=== PATIENT | male | born 1990 | race Caucasian/White ===

== ENCOUNTER 2016-12-14 02:45 | Emergency (ER) | payer OTHER ==
[~2016-12-14 02:45] MED LIST: BACTRIM DS TABL1 TA1 PO; IBUPROFEN800 MG PO; LORTAB 7.5-5001 TAB PO
== END 2016-12-14 04:15 | disposition left against medical advice (07) ==
LOC: CED 02:45
DX: Z53.21 Procedure and treatment not carried out due to patient leaving prior to being seen by health care provider (principal)

== ENCOUNTER 2017-02-12 00:44 | Emergency (ER) | payer OTHER ==
[~2017-02-12] VITALS: Ht 182.9 cm; Wt 63.5 kg
== END 2017-02-12 01:20 | disposition left against medical advice (07) ==
LOC: CED 00:44
DX: F12.10 Cannabis abuse, uncomplicated (principal); F17.210 Nicotine dependence, cigarettes, uncomplicated; Z79.899 Other long term (current) drug therapy
CPT/HCPCS: 99284